=== PATIENT | female | born 1960 | race Caucasian/White ===

== ENCOUNTER 2016-10-25 20:11 | Emergency (ER) | payer OTHER ==
[2016-10-25 21:38] LABS: BASOPHIL 0 % (0-2); EOSINOPHIL 0 % (0-5); HCT 38.9 % (37.0-47.0); LYMPHOCYTE 35.7 % (15-48); MCH 30.3 pg (25.0-31.0); MCHC 33.4 g/dL (32.0-36.0); MCV 90.7 fL (78.0-100.0); MONOCYTE 8.5 % (0-12); MPV 10.3 fL (6.0-9.5); NEUTROPHIL 55.8 % (41-80); PLT 166 K/uL (150-400); RBC 4.29 M/uL (4.20-5.40); RDW 11.8 % (11.5-14.0); WBC 4.3 K/uL (4.0-10.5)
[2016-10-25 22:07] LABS: BILIRUBIN - TOTAL 0.2 mg/dL (0.1-1.0); CREATININE 0.7 mg/dL (0.5-1.0); GLOBULIN (CALCULATION) 2.8 g/dL (2.2-4.2); TOTAL PROTEIN 6.8 g/dL (6.4-8.3)
== END 2016-10-25 22:49 | disposition home or self-care (01) ==
LOC: FER 20:11
PROVIDERS: Emergency Medicine
DX: S46.912A Strain of unspecified muscle, fascia and tendon at shoulder and upper arm level, left arm, initial encounter (principal); R20.2 Paresthesia of skin
CPT/HCPCS: 36415; 71020; 80053; 84484; 85025; 85379